=== PATIENT | male | born 1940 | race Caucasian/White ===

== ENCOUNTER 2018-02-21 00:47 | Day surgery (SDC) | payer MEDICARE ==
[~2018-02-21] VITALS: Ht 180.3 cm; Wt 98.9 kg
[~2018-02-21 00:47] MED LIST: ASCO-191 PO; ASPI-1471 PO; DORZ10DR24 OP; FLUT15.88 NS; GLUC-198 PO; HYDR-2966 PO; LISI-362 PO; LORA-629 PO; MELO-207 PO; METO-257 PO; MULT-865 PO; OMEG-11 PO; OMEP-137 PO; SIMV-54 PO; TIMO5DRO26 OP
[2018-02-21] MEDS ORDERED: fentaNYL CITR 100 MCG/2 ML AMP ONE (06:32)
[2018-02-21] MEDS ORDERED: DEXAMETHASONE SOD 4 MG/ML VIAL ONE (06:33)
[2018-02-21] MEDS ORDERED: ONDANSETRON 4 MG/2 ML VIAL ONE (06:33)
[2018-02-21] MEDS ORDERED: LIDOCAINE MPF 1% 5 ML VIAL ONE (06:33)
[2018-02-21] MEDS ORDERED: PROPOFOL EMUL(*) 10MG/ML 20 ML 20 ML ONE (06:33)
[2018-02-21] MEDS ORDERED: LIDOCAINE 2% JELLY 5 ML TUBE ONE (06:56)
[2018-02-21] MEDS ORDERED: OXYMETAZOLINE SPRAY 15 ML BTL ONE (09:10)
[2018-02-21 09:17] VITALS: BP 139/76
[2018-02-21] MEDS ORDERED: NORMOSOL R SOLN(*) 1000 ML BAG 1,000 ML IV PRN (09:20)
[2018-02-21] MEDS ORDERED: LIDOCAINE/SOD BICARB 8.4% SYR ID ONE (09:20)
[2018-02-21] MEDS ORDERED: MIDAZOLAM 2 MG/2 ML VIAL IVP PRN (09:20)
[2018-02-21] MEDS ORDERED: ePHEDrine 25 MG/5 ML DISP.SYR IVP ONE (09:29)
--- NOTE | 2018-02-21 12:22 | OPERATIVE REPORT 1 ---
EVENT DATE: February 21, 2018 SURGEON: Douglas Taylor MD ANESTHESIOLOGIST: Oswald Song MD ANESTHESIA: LMA PREOPERATIVE DIAGNOSIS 1. Right chronic serous otitis media. 2. Right Eustachian tube dysfunction. POSTOPERATIVE DIAGNOSIS 1. Right chronic serous otitis media. 2. Right Eustachian tube dysfunction. PROCEDURE PERFORMED 1. Nasopharyngoscopy. 2. Right Eustachian tube dilation. INDICATIONS Please refer to the preoperative note. DESCRIPTION OF PROCEDURE The patient was positively identified in the preoperative area. He was accompanied there by his . Risks were again explained, including but not limited to, persistent effusion, injury to the carotid artery, and those associated with anesthesia. He acknowledged understanding of those risks. He was then brought back to the operative suite, laid supine on the operative table , and anesthesia was administered. Once asleep, the patient was positioned, then prepped and draped in usual sterile fashion. The right nasal cavity was decongested by placing cottonoids containing Afrin solution. These were subsequently removed. A nasopharyngoscopy was performed. The right nasal cavity was remarkable for a right septal deviation. The nasopharynx was clear of obstructing lesions. Under direct visualization, the Eustachian tube catheter was placed into the Eustachian tube. The balloon was inflated to 12 cm of water and left for a total of 2 minutes. This was then deflated and removed. The patient was then turned to Anesthesia for emergency. ESTIMATED BLOOD LOSS None. COMPLICATIONS No complications. MTDD
== END 2018-02-21 10:43 | disposition home or self-care (01) ==
LOC: OR 00:47
PROVIDERS: ATTEND Otolaryngology
DX: H65.21 Chronic serous otitis media, right ear (principal); H69.81 Other specified disorders of Eustachian tube, right ear
CPT/HCPCS: A9270; C9745; J1100; J2001; J2405; J2704; J3010